=== PATIENT | male | born 1985 | race Caucasian/White ===

== ENCOUNTER 2024-04-23 19:56 | Observation (INO) | payer OTHER, SELFPAY ==
[2024-04-23] VITALS (9 sets, daily range): BP systolic 143–180; BP diastolic 85–119; BMI 36.3
[2024-04-23 16:44] LABS: % Basophils 0.5 % (0-2); % Eosinophils 0.6 % (0-6); % Immature Granulocytes 0.4 % (0-0.5); % Lymphocytes 31.1 % (20.5-51.1); % Monocytes 5.9 % (1.7-9.3); % Neutrophils 61.5 % (42.2-75.2); Absolute Basophils 0.1 10^3/uL (0-0.2); Absolute Eosinophils 0.1 10^3/uL (0-0.7); Absolute Lymphocytes 3.3 10^3/uL (1.2-3.4); Absolute Monocytes 0.6 10^3/uL (0.1-0.6); Absolute Neutrophils 6.5 10^3/uL (1.4-6.5); Hematocrit 43.4 % (39.0-52.0); Hemoglobin 15.9 g/dL (13.0-18.0); Mean Corp Hgb Conc. 36.6 g/dL (33.0-37.0); Mean Corpuscular Hgb 29.9 pg (27.0-31.0); Mean Corpuscular Volume 81.6 fL (80.0-94.0); Mean Platelet Volume 9.9 fL (7.4-10.4); Nucleated Red Blood Cells % 0 % (-); Platelet Count 342 10^3/uL (130-400); Red Blood Cell Count 5.32 10^6/uL (4.70-6.10); Red Cell Dist. Width 12.8 % (11.5-14.5); White Blood Cell Count 10.6 10^3/uL (4.8-10.8)
--- NOTE | 2024-04-23 16:51 | ED.GENMED ---
History of Present Illness
General
Chief Complaint: Heart Rate Problem
Source: patient
Exam Limitations: none
Time Seen by Provider: 04/23/24 16:04
History of Present Illness
History of Present Illness:
39-year-old male complaining of feeling poorly for the last 2 to 3 days. Weak at times cold malaise. Elevated blood pressure readings. No chest pain shortness of breath. Feels somewhat like he may have pneumonia when he had bulky pneumonia years
ago. No cough however no fever. No unusual headache or neurologic symptoms under significant work stress.
Past History
Past History
ED Past Medical History: HTN
ED Past Surgical History: Other ([place] tooth extraction)
Review of Systems
Review of Systems
All Other Systems: Not applicable
Constitutional: Denies fever
Respiratory: Denies trouble breathing
Cardiac: Denies chest pain or syncope
Phy Exam
Physical Exam
Physical Exam:
GENERAL: Alert and oriented in no apparent distress
EYE: Orbits normal.
NECK: Supple, no thyroid palpable
CARDIAC: Tachycardic and regular no murmur
LUNGS: Clear breath sounds,normal
ABDOMEN: Soft, without focal tenderness or distention
NEUROLOGICAL: Alert and oriented , grossly non-focal
SKIN: Warm and dry, no rash or lesion, no discoloration, skin intact.
MUSCULOSKELETAL: No edema,no deformity.Good color
PSYCH: Normal and appropriate interaction. Mildly anxious
Course
Orders/Labs/Results
Orders:
Orders
04/23/24 15:53
Electrocardiogram (*1) Urgent
Reason for Study: Tachycardia
EKG- Treatment ONCE
04/23/24 16:18
Cardiac Monitoring- Treatment ONCE
IV Insert/Care/Rem.- Treatment PRN
0.9% Sodium Chloride 500 ml [Nss] 500 ml IV BOLUS
Pulse Ox/cont/shift [RESP] Stat
Quantity: 1
04/23/24 16:25
COVID-19 Antigen Urgent
Source: Nasal Swab
Complete Blood Count/With Diff Urgent
Comprehensive Metabolic Panel Urgent
D-Dimer Urgent
TSH Reflex To Free T4 Urgent
Troponin I Urgent
04/23/24 18:18
CXR2 [CR Chest - 2 Views ] Urgent
Comment:
Reason For Exam: Fatigue/chest tightness
04/23/24 18:52
Losartan [Cozaar] 100 mg PO NOW STA
Potassium Chloride 10% Elixir [KCl Elixir] 40 meq PO NOW STA
Abnormal Lab Results
04/23/24
16:25
Potassium 3.4 L mmol/L
(3.5-5.1)
Glucose 152 H mg/dl
(70-99)
ALT 68 H U/L
(0-50)
Albumin 5.1 H g/dl
(3.5-5.0)
04/23/24 16:25
04/23/24 16:25
Vital Signs
Initial and Last Documented VS:
Initial Vital Signs
Temp Pulse Resp BP Pulse Ox
98.7 F 126 18 160/119 99
04/23/24 15:49 04/23/24 15:49 04/23/24 15:49 04/23/24 15:49 04/23/24 15:49
Last Documented Vital Signs
Temp Pulse Resp BP Pulse Ox
98.7 F 108 13 168/96 94
04/23/24 15:49 04/23/24 19:07 04/23/24 17:00 04/23/24 19:07 04/23/24 17:30
MDM/Problems Addressed
Differential Diagnosis Includes:
Patient presented tachycardic hypertensive anxious. No acute chest pain or shortness of breath. No true infectious symptoms. Doubt pulmonary emboli but will do D-dimer as a screening given the tachycardia. May be a hypertensive urgency although
blood pressure elevation may be secondary to other issue. Blood pressure has improved to 180s over 77. Doubt primary cardiac issue. Doubt thyroid issue although being checked.
*Critical Care Note
Total Time (30-74mins, 75-104mins- exclusive of procedures): Not Applicable
Update Note
Update Note:
Etiology of patient's symptoms somewhat unclear. Remains mildly tachycardic. Blood pressure 180/99. Not convinced this is totally a blood pressure issue. Minimal hypokalemia. Patient is describing some intermittent chest discomfort however.
Given his hypertension and tachycardia intermittent chest discomfort patient will be admitted.
ED Attending Note
-
Portions of this chart may have been created with voice recognition software.� Occasional wrong word or��sound alike� substitutions may have occurred due to the inherent limitations of voice recognition software.
Discharge Plan
Departure
Patient Disposition: Admit
Date of Disposition: 04/23/24
Time of Disposition: 19:09
Presentation/result/management discussed w/ accepting MD/DO: Hospitalist
Discharge Problem:
Chest tightness, Hypertensive urgency, Mild hypokalemia, Tachycardia
Referrals:
Fredis Toth MD [Family Provider] -
Interventions
Interventions:
ED- Cardiac Assessment Last Done: 04/23/24 16:21
ED- Pulmonary Assessment Last Done: 04/23/24 16:21
Discharge Date and Time
Print Language: TELUGU
[2024-04-23 16:57] LABS: ALT (SGPT) 68 U/L (0-50); AST (SGOT) 44 U/L (17-59); Albumin 5.1 g/dl (3.5-5.0); Alkaline Phosphatase 82 U/L (38-126); Blood Urea Nitrogen 16 mg/dl (9-20); Carbon Dioxide 25 mmol/L (22-30); Chloride 101 mmol/L (98-107); D-Dimer < 0.27 ug/mlFEU (0.00-0.50); Estimated Creatinine Clearance > 125 ml/min; Glucose 152 mg/dl (70-99); Potassium 3.4 mmol/L (3.5-5.1); Sodium 138 mmol/L (135-145); Total Bilirubin 0.5 mg/dl (0.2-1.3); Total Protein 8.2 g/dl (6.3-8.2); eGFR > 60.00
[2024-04-23 17:08] LABS: Troponin I < 0.012 ng/ml
[2024-04-23 17:12] LABS: COVID-19 Antigen Negative (Negative)
[2024-04-23] MEDS: NSS 500 IV (17:14)
[2024-04-23 17:27] LABS: TSH Reflex To Free T4 1.92 uIU/ml (0.47-4.68)
[2024-04-23] MEDS: KCL ELIXIR 40 MEQ PO (19:06)
[2024-04-23] MEDS: COZAAR 100 MG PO (19:07)
--- NOTE | 2024-04-23 19:23 | HPS.HSE ---
Family Physician
-
Family Physician: Fredis Toth
Chief Complaint
-
Penuelas unwell , note h iBP and tachycardia at ER
History of Present Illness
39M HX essential HTN seen at ER:
Evaluation of felt unwell and Hi BP
- has intermittent chest discomfort : report as squeeze in by accordion
- felt unwell with weakness , felt cold and malaise
- No cough however no fever.
- No headache
- compliance with anti HTN meds:
- OTC: denied
- Recreational drugs use: denied
- ETOH: extremely rare per patient
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
- HX PNA and concern with PNA
At ER:
Hi BP, sinus tachy
Labs:
NEG TPNI
NOS EKG but ST
Medical History
Past Medical History
Past Medical History: Reports HTN
Past Surgical History: Reports None
Social History
Tobacco: Non-smoker
Alcohol: Occasional (veryy rarely )
Drug: None
Family History
Family History: Not pertinent
Allergies / Home Medications
Allergies reflects when Allergies were last updated in [employer].
Home Medications with original date entered in [employer]
Allergy/Medication List:
Allergies
Allergy/AdvReac Type Severity Reaction Status Date / Time
No Known Allergies Allergy Unverified 04/23/24 15:52
Home Medications
amlodipine 5 mg tablet 5 mg PO DAILY 04/23/24
chlorthalidone 25 mg tablet 25 mg PO DAILY 04/23/24
losartan 100 mg tablet 100 mg PO QPM 04/23/24
therapeutic multivitamin 1 tab PO DAILY 04/23/24
Review of Systems
-
Constitutional: Reports Fatigue and Chills; Denies Fever
EENT: Reports No Symptoms
Respiratory: Reports No Symptoms
Cardiac: Reports Other (hi BP )
Abdomen/GI: Reports No Symptoms
: Reports No Symptoms
Musculoskeletal: Reports No Symptoms
Skin: Reports No Symptoms
Neurological: Reports No Symptoms
Endocrine: Reports No Symptoms
Hematologic/Lymphatic: Reports No Symptoms
Psych: Reports No Symptoms
Physical Exam
Vital Signs
Vital Signs
Temp Pulse Resp BP Pulse Ox
98.7 F 108 12 168/96 96
04/23/24 15:49 04/23/24 19:07 04/23/24 19:00 04/23/24 19:07 04/23/24 18:45
Physical Exam
General: Well Developed, Well Nourished and No Apparent Distress
HEENT: NormoCephalic, Moist mucous membranes and Atraumatic
Respiratory: Clear
Cardiac: S1/S2, Regular Rhythm and Murmur (Soft systolic murmur at Lt USB); No Rub
GI: Soft, Non Tender, Non Distended and Normal Bowel Sounds; No Organomegaly
Rectal: Deferred by Provider
Musculoskeletal: No Clubbing, No Cyanosis and No Edema
Skin: Other (ell healed scar at upper back s/p removal of cyst ); No Rash
Neuro: Nonfocal/grossly intact
Psych: Calm
Laboratory Results
-
04/23/24 16:25
04/23/24 16:25
Laboratory Results
Total Bilirubin 0.5 mg/dl (0.2-1.3) 04/23/24 16:25
AST 44 U/L (17-59) 04/23/24 16:25
ALT 68 U/L (0-50) H 04/23/24 16:25
Alkaline Phosphatase 82 U/L (38-126) 04/23/24 16:25
Troponin I < 0.012 ng/ml 04/23/24 16:25
Data Reviewed
-
Diagnostic Radiology: Report Reviewed by me
Medical Tests (Nuc Med, Echo, EKG etc): Report Reviewed by me
Lab Data: Labs Reviewed by me
Impression/Plan
-
Reviewed VS: BP 170s /100s HR 100s(ST) RR13 POX 94-99
Data
nl CBC
K 3.4
ALT 68
otherwise nl CMP
BG 152
NEG TPN
EKG report
SINUS TACHYCARDIA
NONSPECIFIC ST ABNORMALITY
ABNORMAL ECG
NO PREVIOUS ECGS AVAILABLE
04/23/24 CXR: No acute cardiopulmonary process.
NEG Covid
No prior visit to :
ASSESSMENT & PLAN
Intermittent chest pressure felt like squeezed by accordion
- NEG TPNI
- NOS EKG
- Trend TPNI q6h
- trend EKG
- DCA card consult
Soft systolic murmur at Lt USB
- ECHO in AM
Current acute malaise and weakness ? onset of acute viral syndrone vs early acute viral Covid
- supportive care
- Repeat Covid in AM
Sinus tachycardia
- Recreational drugs use: denied
- ETOH: extremely rare per patient
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
- nl TSH
HTN urgency
Uncontrol HTN
HX Essential HTN
- compliance with anti HTN meds:
- OTC Meds : denied
- s/p Losartan 100mg x 1 at ER
- escalade : Amlodipine to 10 daily in AM
- cont Chlorthalidone
- cont. Losartan
- add IV Hydralazine PRN for SBP > 165, DBP > 110
Borderline hypokalemia
- PO KCL 20 x1
- f/u K in AM
Elevated Random BG
- check A1 C
Isolated ALT elevation unclear origin
- denied daily ETOH use
- repeat LFTs in AM
DVT Px: LMWH
Code: Full
Obs TLM
[2024-04-23 22:07] LABS: Troponin I < 0.012 ng/ml
--- NOTE | 2024-04-23 22:32 | PTCARENOTE ---
Receive pt from ER. Pt alert oriented X3, calm, in no distress. Pt walks independently to his bed. Pt oriented to the room, call celestin within reach. Pt states that he has a 'chest pain like' that feels like pressure and that comes and goes. The pain
8is 01/09, but the pt denies any need for pain medication. Pt on S.Tachycardia on telemonitor. VSS =98.9, VK=747, RR=18, MK=437/95, SpO2=97% on RA). 2nd TROP is Neg (<0.012) and the EKG without abnormalities except Tachycardia. Will keep monitoring
the pt
[2024-04-24 02:52] LABS: Troponin I < 0.012 ng/ml
[2024-04-24 04:37] VITALS: BP 120/80
[2024-04-24 08:03] LABS: ALT (SGPT) 60 U/L (0-50); AST (SGOT) 37 U/L (17-59); Albumin 4.5 g/dl (3.5-5.0); Alkaline Phosphatase 64 U/L (38-126); Blood Urea Nitrogen 13 mg/dl (9-20); Calcium 9.5 mg/dl (8.4-10.2); Carbon Dioxide 24 mmol/L (22-30); Chloride 105 mmol/L (98-107); Estimated Creatinine Clearance > 125 ml/min; Glucose 105 mg/dl (70-99); HDL Cholesterol 36 mg/dl; LDL Cholesterol, Calculated 132 mg/dl; Potassium 3.8 mmol/L (3.5-5.1); Sodium 139 mmol/L (135-145); Total Bilirubin 0.7 mg/dl (0.2-1.3); Total Cholesterol 197 mg/dl (50-199); Total Protein 7.2 g/dl (6.3-8.2); Triglyceride 145 mg/dl (10-149); Very Low Density Lipoprotein 29 mg/dl (0-30); eGFR > 60.00
[2024-04-24 08:16] LABS: Procalcitonin < 0.05 ng/ml (0.0-0.25)
[2024-04-24 08:21] LABS: Phosphorus 3.5 mg/dl (2.5-4.5)
[2024-04-24 08:32] LABS: Cortisol, Random 10.6 ug/dl
[2024-04-24 08:35] VITALS: BP 146/87
[2024-04-24] MEDS: THERAGRAN 1 TABLET PO (08:51)
[2024-04-24] MEDS: NORVASC 10 MG PO (08:51)
--- NOTE | 2024-04-24 08:54 | W.PN.HOSP.TC ---
Today's Communication/Plan
-
cardio eval
echo
possible d/c depending on further cardio plans
Assessment / Plan
Assessment / Plan
39yo M with PMHx of HTN came with 3 days of intermittent pressure-like feeling in the chest not related to exertion. Admitted for chest pain workup.
A/P:
#Chest discomfort, most likely non-cardiac
#HLD
Serial troponin neg
Echo pending
cardiac consult, meanwhile ASA, statin, BB
telemetry
#Mild hypokalemia
transient, 2/2 chlorthalidone
advised to monitor electrolytes with PCP
#Malaise
suspect transient viral syndrome especially in view of mildly elevated body temperature
SInce patient recovering - advise oral hydration
#Essential HTN
cont to work with PCP
#ALT elevation
Hepatitis profile
DVT ppx lovenox
full code
I have spent at least 7min reviewing chart, test results and providing direct patient care
Anticipated Discharge: Today
Subjective/Interval History
-
Date of Service: April 24, 2024
Objective Data
-
Labs:
Laboratory Results
04/24/24
07:28
Sodium 139
Potassium 3.8
Chloride 105
Carbon Dioxide 24
BUN 13
Creatinine 0.9
Glucose 105 H
Calcium 9.5
Total Bilirubin 0.7
AST 37
ALT 60 H
Alkaline Phosphatase 64
Vital Signs:
Vital Signs
Temp Pulse Resp BP Pulse Ox
98.1 F 66 18 146/87 97
04/24/24 08:35 04/24/24 08:35 04/24/24 08:35 04/24/24 08:35 04/24/24 08:35
I&O
04/23/24 04/24/24 04/25/24
06:59 06:59 06:59
Intake Total 480 / 480
Balance 480 / 480
Review of Systems
-
History Source: Patient
Cardiac: Reports Chest Pain
Physical Exam
-
General: Well Developed, Well Nourished and No Apparent Distress
HEENT: Normocephalic and Atraumatic
Cardiac: Regular Rhythm; Negative Murmur
GI: Soft, Nontender and Nondistended
Genito-urinary: No Costovertebral Tender
Musculoskeletal: No Clubbing, No Cyanosis and No Edema
Skin: Warm
Neuro: Awake, Alert, Oriented and AO x 3
Psych: Calm
[2024-04-24] MEDS: LR IV (09:05)
[2024-04-24] MEDS: LOW STRENGTH ASPIRIN 81 MG PO (10:20)
[2024-04-24] MEDS: TOPROL XL 25 MG PO (10:20)
--- NOTE | 2024-04-24 10:29 | CON.CAR ---
Addendum entered and electronically signed by Ezequiel Mehta MD 04/24/24 15:53:
I saw and examined the patient.
The Elementary Education Tutor's note was reviewed and I agree with the note.
Comment:
GEN: No distress, awake, Ox3
HEENT: supple, anicteric, mmm
LUNGS: CTA, no wheezes/rales
CV: Reg, S1/S2, 1/6 syst LSB, no gallop
ABD: soft, BS+, NT/ND
EXT: No edema
NEURO: Gross non-focal
SKIN: No rash
Plan:
39-year-old male with past medical history hypertension presents with atypical chest pains and hypertensive urgency. He has had intermittent chest pains for the past 24 to 72 hours. Cardiac troponins are negative x 2. EKG has mild nonspecific ST
abnormalities.
Clinically he is much improved today and blood pressure has improved significantly. He agree with plan to start aspirin, metoprolol, and continue atorvastatin.
Check echocardiogram.
Recommend continue amlodipine, chlorthalidone, and losartan.
I will consider adding spironolactone for him as well.
If troponins are negative and he feels well would recommend outpatient exercise nuclear stress test
Original Note:
Consultation
Consultation Request
Date/Time Consultation Performed: 04/24/24
Requesting Provider: Dr. Roman
Performing Provider: Marii Heard PA-C for Dr. Mehta
Reason for Consultation: CP, HTN
Medical History
-
Chief Complaint: CP
History of Present Illness:
Patient is a 39 yo M with PMH of HTN requiring admission to [facility] 08/2022. He was started on multidrug antiHTN regimen and was seen as OP by nephrology. He states he was cleared by them ~ 1 year ago and since then his BP has been managed by his PCP.
He states his norvasc was dropped from 10mg daily to 5mg daily and states he has noticed a change since this. He reports over the last 72 hours he started with chest pressure. He reports it comes in waves, starting in the morning and seems to worsen
throughout the day. He states then he takes his losartan and this seems to improve his symptoms somewhat. He reports no clear correlation of discomfort with exertion. He denies radiation of pain however does report some tingling in his B/L arms
associated with the pain. He also states yesterday he had feeling of being cold and clammy which prompted him to come to ER. Denies N/V, fevers. Reports feeling weak and 'not myself.' Initial EKG with lateral ST depressions, resolved by repeat EKG.
Initial trop negative. Cardiology consulted for evaluation.
PMH:
HTN, requiring admission to [facility] 08/2022 for HTN emergency
Past Medical History
Past Medical History: Other (in HPI)
Social History
Tobacco: Former Smoker
Alcohol: Occasional (1-2 drinks per week)
Personal:
Living: With Family
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
Family History
Family History: Hypertension and Other (HLD)
Allergies / Home Medications
Allergy/AdvReac Type Severity Reaction Status Date / Time
No Known Allergies Allergy Unverified 04/23/24 15:52
�Medication �Instructions �Recorded �Confirmed �Type
amlodipine 5 mg tablet 5 mg PO DAILY Blood Pressure 04/23/24 04/23/24 History
chlorthalidone 25 mg tablet 25 mg PO DAILY Fluid 04/23/24 04/23/24 History
Retention/Swelling
losartan 100 mg tablet 100 mg PO QPM Blood Pressure 04/23/24 04/23/24 History
therapeutic multivitamin 1 tab PO DAILY Supplement 04/23/24 04/23/24 History
Review of Systems
-
History Source: Patient
All other systems: Negative unless noted
Physical Exam
Vital Signs
Temp Pulse Resp BP Pulse Ox
98.1 F 66 18 146/87 97
04/24/24 08:35 04/24/24 08:51 04/24/24 08:35 04/24/24 08:51 04/24/24 08:35
Lab Results
04/23/24 16:25
04/24/24 07:28
Troponin I < 0.012 ng/ml 04/24/24 01:53
Physical Exam
General: No Apparent Distress and Comfortable
HEENT: Normocephalic, Anicteric and Moist Mucous Membranes
Respiratory: Clear and Non Labored Respirations
Cardiac: S1/S2 and Regular Rhythm
GI: Soft, Non Tender, Non Distended and Normal Bowel Sounds
Musculoskeletal: No Clubbing, No Cyanosis and No Edema
Skin: Warm and Dry
Neuro: AO x 3
Impression / Plan
-
Primary Marketing And Communications Officer: none
Assessment:
Presentation with chest pressure
Negative troponin x1
HTN urgency
Abnormal EKG
Obesity
Former smoker
Plan:
-Patient presents with several days of chest pressure as well as hypertensive urgency.
-initial trop negative however initial EKG with evidence of lateral ST depressions, resolved by repeat EKG
-check 2nd trop
-check echo
-CXR without acute processes
-asa, toprol added per primary service
-LDL 132. lipitor added per primary service
-pending results of echo and 2nd trop, would consider for inpatient vs outpatient ischemic evaluation
-came in on antiHTN regimen of norvasc 5mg daily, cozaar 100mg daily, chlorthalidone 25mg daily. norvasc dose was increased back to 10mg daily this admission
-suspected patient had work up of secondary causes of HTN when followed by nephrology previously
-d/w nursing
Data Reviewed
-
EKG: Tracing Personally Visualized and interpreted
Radiology: Report Reviewed by me
Labs: Labs Reviewed by me
Old Records: Reviewed
[2024-04-24 11:43] VITALS: BP 159/94
[2024-04-24 11:58] LABS: Glycohemoglobin (HgbA1c) 5.5 % (4.0-5.6)
[2024-04-24] MEDS: LR 1000 IV (12:46)
--- NOTE | 2024-04-24 13:13 | PTCARENOTE ---
LR at 1000 over one hour ordered this morning as per hospitalist. Questioned order as patient is here with chest pain and HTN. Echo results were still pending; Patient was on diuretic at home but now is on hold. Patient does not have any signs of
dehydration, and is afebrile. Hospitalist states that he has 'viral' syndrome. Waited for results of echo - EF 61% to hang. As hospitalist states he would still like fluids administered. Cardiology in to see patient a few minutes later and
questioned IVF. Stock Parts Inspector discontinued fluids. Patient received minimal amount of fluids - approximately 50 mls.
[2024-04-24 13:20] LABS: Troponin I < 0.012 ng/ml
[2024-04-24 13:33] VITALS: BP 160/92
--- NOTE | 2024-04-24 13:42 | W.DCSUMMARY ---
Discharge Summary
Discharge Data
Date of Admission: 04/23/24
Date of Discharge: 04/24/24
-
Pending Results: Yes
Additional Pending Results:
Hepatitis test
Hospital Course
39yo M with PMHx of HTN came with 3 days of intermittent pressure-like feeling in the chest not related to exertion. Admitted for chest pain workup. Troponing neg x4, Echo shiowed no significant valvular disease, preserved EF, no diastolic
dysfunction. DDimer low with Wells score of 0. Mild hypokalemia resolved -recommended follow with PCP for BMP in 2 weeks. Amlodipine was increased since poor BP control could cause the symptoms. Improvement might take days. Rapid drop in BP can
cause harm, so will avoid agressive lowering. Toprol. Lipitor, ASA added and can be stopped if outpatient stress test scheukled by cardiology for 04/29/24 will be neg - defer to cardiology. HgbA1c 5.5%.
PAtient verbalized understanding of the instructions and medically stable for d/c home. I have spent at least 36min discharging patient, reviewing chart and test results.
Patient was managed for:
#Chest discomfort, most likely non-cardiac
#HLD
Serial troponin neg
Echo pending
cardiac consult, meanwhile ASA, statin, BB
telemetry without arrhythmia
#Mild hypokalemia
transient, 2/2 chlorthalidone
advised to monitor electrolytes with PCP
#Malaise
suspect transient viral syndrome especially in view of mildly elevated body temperature
SInce patient recovering - advise oral hydration
#Essential HTN
cont to work with PCP
#ALT elevation
minimal
Low fat diet
follow with PCP
Discharge Plan
-
Patient Disposition: Home (Routine Discharge)
Discharge Diagnosis/Procedures: chest dyscomfort 2/2 hypertension
Diet: Low Sodium
Activity: As tolerated
Driving Restrictions: As prior to admission
Bathing Restrictions: None
Activity Restrictions/Additional Instructions:
You are scheduled for exercise nuclear stress test on Monday04/29/24 at 12:40PM at the [facility] office in [facility]. Please call with questions.
Referrals:
Frdeis Toth MD [Family Provider] -
Shanika Araya PA-C [Specified Professional Personl] - 05/22/24 8:00 am (You have a cardiology follow-up appointment at the [place] office. Please call with questions)
Prescriptions:
New
amlodipine 10 mg tablet
10 mg PO DAILY Qty: 30 0RF
atorvastatin 20 mg Tablet
20 mg PO QPM 30 Days Qty: 30 0RF
aspirin 81 mg Tablet,Chewable
81 mg PO DAILY 30 Days Qty: 30 0RF
metoprolol succinate 25 mg Tablet Extended Release 24 Hr
25 mg PO DAILY 30 Days Qty: 30 0RF
Continued
therapeutic multivitamin Tablet
1 tab PO DAILY
chlorthalidone 25 mg tablet
25 mg PO DAILY
losartan 100 mg tablet
100 mg PO QPM
Discontinued
amlodipine 5 mg tablet
5 mg PO DAILY
Discharge Orders:
Discharge Patient (As Directed); Ordered 04/24/24
Ordered By: Jose Manuel Roman
Discharge Date and Time
Print Language: DIVEHI
--- NOTE | 2024-04-24 14:03 | CM ---
Patient seen bedside, initial assessment completed. Patient resides with his and two children in a single story home, two steps to enter. Patient denies use of DME, is independent, no VN or SNF history. Patient PCP Fredis Toth, pharmacy
[facility], confirms prescription coverage. Patient denies food, housing/utility, transportation insecurities at home. OBS form reviewed, signed, placed in chart. Patient confirms he has transportation home, denies any needs upon
discharge. CM will continue to follow for all discharge planning needs.
Plan; home no needs.
--- NOTE | 2024-04-24 14:13 | PTCARENOTE ---
Patient with additional troponin done with negative result. EKG done without evidence of ectopy. Patient to have OP cardiology appointment and stress test performed. Patient has prescription for stress test.
--- NOTE | 2024-04-24 16:08 | PTCARENOTE ---
Rn merchandise coordinator-Recieved notice that patient was d/c and that all scriptt were not available at pharmacy. Called to [facility] in [place] and confirmed that medication was now received.
[2024-04-25 19:05] LABS: Hepatitis B Surface Antigen Negative (Negative)
[2024-04-25 19:22] LABS: Hepatitis C Antibody Negative (Negative)
[2024-04-25 20:26] LABS: Hepatitis B Surface Antibody Indeterminate
[2024-04-25 20:32] LABS: Hepatitis B Core Ab, IgM Negative (Negative)
== END 2024-04-24 14:25 | disposition home or self-care (01) ==
LOC: 4 EAST ACU 19:56
PROVIDERS: ADMITTING PHYSICIAN Internal Medicine; ATTENDING PHYSICIAN Internal Medicine; EMERGENCY PHYSICIAN Emergency Medicine; FAMILY PHYSICIAN Family Medicine; OTHER PHYSICIAN Internal Medicine Cardiovascular Disease
DX: R07.89 Other chest pain (principal); I10 Essential (primary) hypertension; R53.81 Other malaise; R53.1 Weakness; I49.8 Other specified cardiac arrhythmias; R53.83 Other fatigue; E87.6 Hypokalemia; I16.0 Hypertensive urgency; E78.5 Hyperlipidemia, unspecified; R79.89 Other specified abnormal findings of blood chemistry; Z87.891 Personal history of nicotine dependence
CPT/HCPCS: 71046; 80053; 80061; 82533; 83036; 83735; 84100; 84145; 84443; 84484; 85025; 85379; 86705; 86706; 86803; 87340; 87811; 93005; 93306; 96360; 96361; 99285; G0378

== ENCOUNTER → 2024-05-17 08:14 | Outpatient (REF) | payer OTHER, SELFPAY | LOC: RCS 08:14 | PROVIDERS: ATTENDING PHYSICIAN Internal Medicine Cardiovascular Disease; FAMILY PHYSICIAN Family Medicine | DX: R07.89 Other chest pain (principal); I10 Essential (primary) hypertension; R94.31 Abnormal electrocardiogram [ECG] [EKG]; E66.9 Obesity, unspecified | CPT/HCPCS: 93017; 93350 ==